=== PATIENT | female | born 1975 | race Caucasian/White ===

== ENCOUNTER 2017-08-07 18:00 | Emergency (ER) | payer OTHER ==
[~2017-08-07] VITALS: Ht 160 cm; Wt 81.7 kg
[~2017-08-07 18:00] MED LIST: ACYC400 PO; ACYC800 PO; ALBU90OI INH; ALPR.5 PO; AMOCLA500 PO; AMOX500 PO; BUPRENORPHINE HC8 MG SL; BUSP15 PO; CEPH500 PO; CLIN300 PO; CYCL10 PO; Cleocin HCl150 MG PO; DIAZ5 PO; DULO30 PO; DULO60 PO; Diflucan100 MG PO; Diflucan150 MG PO; HYDACE5 PO; IBUP800 PO; LISI20 PO; LISI5 PO; NAPR500 PO; Norco 5-325 Ta1 EACH PO; PENVK500 PO; PHENA100 PO; PRED20 PO; Percocet 5-3251 EACH PO; RXCLIN PO; RXCYCL10 PO; RXHYDACE PO; RXTRAM50 PO; TRAM50 PO; Valtrex1000 MG PO; Zovirax Cream 5%2 GM TOP; Zovirax200 MG PO; Zovirax400 MG PO; Zovirax800 MG PO
[2017-08-07] MEDS ORDERED: Voltaren100 GM TOP (18:12)
[2018-05-11] MEDS ORDERED: Zovirax800 MG PO (17:15)
== END 2017-08-07 18:17 | disposition home or self-care (01) ==
LOC: ER 18:00
DX: M54.5 Low back pain (principal); Z88.2 Allergy status to sulfonamides; Z79.899 Other long term (current) drug therapy; F32.9 Major depressive disorder, single episode, unspecified; G43.909 Migraine, unspecified, not intractable, without status migrainosus; Z90.10 Acquired absence of unspecified breast and nipple
CPT/HCPCS: 99282

== ENCOUNTER 2017-12-01 15:06 | Emergency (ER) | payer OTHER ==
[~2017-12-01] VITALS: Ht 157.5 cm; Wt 74.8 kg
[~2017-12-01 15:06] MED LIST changes: +Voltaren100 GM TOP
[2017-12-01] MEDS ORDERED: AMPDEX10CR PO (15:32)
[2017-12-01] MEDS ORDERED: SUBOXONE 8 MG-1 EACH PO (15:32)
[2017-12-01 15:49] LABS: Source, Urine Voided
[2017-12-01 15:57] LABS: Appearance, Urine Clear (Clear); Bilirubin, Urine Neg (Neg); Blood, Urine Neg (Neg); Color, Urine Yellow (P-Yellow); Glucose Qualitative, Urine Neg (Neg); Ketones, Urine Neg (Neg); Leukocyte Esterase, Urine 2+ (Neg); Nitrite, Urine Neg (Neg); Protein, Urine Neg (Neg); Urobilinogen, Urine NORM (Normal)
[2017-12-01 16:03] LABS: Bacteria Few /hpf; Mucus Light (0-Heavy); Red Blood Cells, Urine 0-2 /hpf (0-2); Squamous Epithelial Cells Few /hpf (Few)
[2017-12-03 17:08] LABS: CHLAMYDIA TRACHOMATIS, NAA Negative (Negative); NEISSERIA GONORRHOEAE, NAA Negative (Negative)
== END 2017-12-01 19:44 | disposition left against medical advice (07) ==
LOC: ER 15:06
PROVIDERS: Nurse Practitioner Family
DX: Z53.21 Procedure and treatment not carried out due to patient leaving prior to being seen by health care provider (principal)
CPT/HCPCS: 81001; 87086; 87491; 87591; 99283

== ENCOUNTER → 2018-01-28 | Outpatient (CLI) | payer OTHER ==
[~2018-01-28] MED LIST changes: +AMPDEX10CR PO; +SUBOXONE 8 MG-1 EACH PO
[2018-01-29 11:23] LABS: Candida species (DNA Probe) Negative (NEGATIVE); G. vaginalis (DNA Probe) Positive (NEGATIVE); T. vaginalis (DNA Probe) Positive (NEGATIVE)
== END ==
LOC: LAB SHORT 13:52 → LAB SRC 13:52
PROVIDERS: Registered Nurse
DX: Z12.4 Encounter for screening for malignant neoplasm of cervix (principal); N89.8 Other specified noninflammatory disorders of vagina
CPT/HCPCS: 87480; 87510; 87660

== ENCOUNTER 2018-05-09 00:35 | Emergency (ER) | payer OTHER ==
[~2018-05-09] VITALS: Ht 157.5 cm; Wt 112.5 kg
[2018-05-09] MEDS ORDERED: CLON.1 PO (00:57)
[2018-05-09] MEDS ORDERED: Ondansetron Odt8 MG PO (00:57)
[2018-05-11] MEDS ORDERED: Zovirax800 MG PO (17:15)
== END 2018-05-09 02:29 | disposition home or self-care (01) ==
LOC: ER 00:35
DX: F11.23 Opioid dependence with withdrawal (principal); F32.9 Major depressive disorder, single episode, unspecified; G43.909 Migraine, unspecified, not intractable, without status migrainosus; Z88.2 Allergy status to sulfonamides; Z79.899 Other long term (current) drug therapy
CPT/HCPCS: 96372; 99283; J1885; J2550; Q0163

== ENCOUNTER 2018-09-09 22:58 | Emergency (ER) | payer OTHER ==
[~2018-09-09] VITALS: Ht 157.5 cm; Wt 68.0 kg
[~2018-09-09 22:58] MED LIST changes: +CLON.1 PO; +Ondansetron Odt8 MG PO
[2018-09-10] MEDS ORDERED: Phenergan6.25 MG/5 PO (00:08)
[2018-09-10] MEDS ORDERED: BENZ100A PO (00:11)
[2018-09-10] MEDS ORDERED: Amphetamine Sal20 MG PO (00:14)
[2018-09-10] MEDS ORDERED: SUBOXONE 8 MG-1 EACH SL (00:14)
== END 2018-09-10 00:22 | disposition home or self-care (01) ==
LOC: ER 22:58
DX: J06.9 Acute upper respiratory infection, unspecified (principal); Z88.2 Allergy status to sulfonamides; Z79.899 Other long term (current) drug therapy; F32.9 Major depressive disorder, single episode, unspecified; G43.909 Migraine, unspecified, not intractable, without status migrainosus
CPT/HCPCS: 87081; 87430; 99283

== ENCOUNTER → 2019-10-07 | Outpatient (CLI) | payer OTHER ==
[~2019-10-07] MED LIST changes: +Amphetamine Sal20 MG PO; +BENZ100A PO; +IBUP200 PO; +Phenergan6.25 MG/5 PO; +SUBOXONE 8 MG-1 EACH SL
[2019-10-08 09:52] LABS: Candida species (DNA Probe) Negative (NEGATIVE); G. vaginalis (DNA Probe) Negative (NEGATIVE); T. vaginalis (DNA Probe) Negative (NEGATIVE)
[2019-10-09 15:09] LABS: HPV 16 Negative (Negative); HPV 18 Negative (Negative); HPV OTHER HR TYPES Negative (Negative)
== END | disposition home or self-care (01) ==
LOC: LAB SHORT 17:49 → LAB 17:49
PROVIDERS: Registered Nurse
DX: Z12.4 Encounter for screening for malignant neoplasm of cervix (principal); Z72.51 High risk heterosexual behavior
CPT/HCPCS: 87480; 87510; 87624; 87660; G0123

== ENCOUNTER → 2022-07-31 | Outpatient (CLI) | payer OTHER ==
[2022-07-31 16:50] LABS: Source, Urine Voided
[2022-07-31 17:41] LABS: Appearance, Urine Hazy (Clear); Bilirubin, Urine Neg (Neg); Blood, Urine 1+ (Neg); Color, Urine Yellow (P-Yellow); Glucose Qualitative, Urine Neg (Neg); Ketones, Urine Neg (Neg); Leukocyte Esterase, Urine 2+ (Neg); Nitrite, Urine Neg (Neg); Protein, Urine 1+ (Neg); Specific Gravity, Urine 1.015 (1.003-1.022); Urobilinogen, Urine NORM (Normal)
[2022-07-31 17:52] LABS: White Blood Cells, Urine 50-100 /hpf (0-5); Yeast/Fungi Urine Few /hpf
[2022-07-31 17:53] LABS: Bacteria Mod /hpf; Red Blood Cells, Urine 0-2 /hpf (0-2); Squamous Epithelial Cells Few /hpf (Few)
== END | disposition home or self-care (01) ==
LOC: LAB 15:00 → LAB SHORT 15:00
PROVIDERS: Registered Nurse
DX: R35.0 Frequency of micturition (principal); R30.0 Dysuria; R39.15 Urgency of urination
CPT/HCPCS: 81001; 87086

== ENCOUNTER → 2022-10-22 | Outpatient (CLI) | payer OTHER ==
[2022-10-26 07:21] LABS: Stool Occult Bld Immuno 1 Negative (NEGATIVE)
== END | disposition home or self-care (01) ==
LOC: LAB 12:00 → LAB SHORT 12:00
PROVIDERS: Registered Nurse
DX: Z12.11 Encounter for screening for malignant neoplasm of colon (principal)
CPT/HCPCS: G0328

== ENCOUNTER 2023-08-08 10:32 | Emergency (ER) | payer BC ==
[~2023-08-08] VITALS: Ht 157.5 cm; Wt 59.0 kg
[2023-08-08 11:07] VITALS: BP 158/91
[2023-08-08 11:33] LABS: Source, Urine Clean Catch
[2023-08-08 11:37] LABS: Appearance, Urine Hazy (Clear); Bilirubin, Urine Neg (Neg); Blood, Urine 5+ (Neg); Color, Urine Yellow (P-Yellow); Glucose Qualitative, Urine Neg (Neg); Ketones, Urine Neg (Neg); Leukocyte Esterase, Urine 3+ (Neg); Nitrite, Urine Neg (Neg); Protein, Urine 1+ (Neg); Urobilinogen, Urine NORM (Normal); pH, Urine 6.5 (5.0-8.0)
[2023-08-08 12:41] LABS: Bacteria Mod /hpf; Squamous Epithelial Cells Few /hpf (Few); White Blood Cells, Urine 50-100 /hpf (0-5)
[2023-08-08 12:42] LABS: Yeast/Fungi Urine Rare /hpf
[2023-08-08] MEDS ORDERED: Macrobid 100 M100 MG PO (12:48)
[2023-08-08] MEDS ORDERED: Pyridium200 MG PO (12:50)
== END 2023-08-08 13:02 | disposition home or self-care (01) ==
LOC: ER 10:32
PROVIDERS: Physician Assistant
DX: N39.0 Urinary tract infection, site not specified (principal); G43.909 Migraine, unspecified, not intractable, without status migrainosus; Z79.899 Other long term (current) drug therapy; Z88.2 Allergy status to sulfonamides
CPT/HCPCS: 81001; 87086; 99283; A9270

== ENCOUNTER 2023-08-16 09:59 | Emergency (ER) | payer BC ==
[~2023-08-16] VITALS: Ht 157.5 cm; Wt 61.2 kg
[~2023-08-16 09:59] MED LIST changes: +Macrobid 100 M100 MG PO; +Pyridium200 MG PO
[2023-08-16 10:17] VITALS: BP 169/90
[2023-08-16 10:42] LABS: BASOPHILS ABSOLUTE AUTO 0.02 K/mm3 (0.00-0.23); BASOPHILS PERCENT AUTO 0 % (0-2); EOSINOPHILS PERCENT AUTO 1 % (0-6); Hematocrit 41.7 % (33.0-51.0); Hemoglobin 14.1 g/dL (11.5-16.0); IMMATURE GRAN ABSOLUTE AUTO 0.01 K/mm3 (0.00-0.10); IMMATURE GRAN PERCENT AUTO 0 % (0-1); LYMPHOCYTES ABSOLUTE AUTO 1.91 K/mm3 (0.84-5.20); LYMPHOCYTES PERCENT AUTO 21 % (21-46); MONOCYTES ABSOLUTE AUTO 0.51 K/mm3 (0.16-1.47); MONOCYTES PERCENT AUTO 6 % (4-13); Mean Corpuscular HGB 30.6 pg (26.0-34.0); Mean Corpuscular HGB Conc 33.8 g/dL (31.5-36.5); Mean Corpuscular Volume 91 fL (80-100); Mean Platelet Volume 9.3 fL (9.1-12.4); NEUTROPHILS ABSOLUTE AUTO 6.39 K/mm3 (1.96-9.15); NEUTROPHILS PERCENT AUTO 72 % (41-73); Platelet Count 315 K/mm3 (150-400); RDW Coefficient Variation 12.2 % (11.7-14.2); RDW Standard Deviation 40.2 fL (35.1-46.3); Red Blood Cell Count 4.61 M/mm3 (3.80-5.20); White Blood Cell Count 8.94 K/mm3 (4.00-11.30)
[2023-08-16 11:02] LABS: Albumin, Blood 4.4 g/dL (3.4-5.0); Albumin/Globulin Ratio 1.1 (0.8-1.8); Bilirubin, Total 0.9 mg/dL (0.1-1.0); Calcium, Blood 9.6 mg/dL (8.5-10.1); Creatinine, Blood 0.52 mg/dL (0.40-1.00); Globulin, Blood 3.9 g/dL (2.2-4.0); Potassium, Blood 4.1 mmol/L (3.5-5.5); Total Protein, Blood 8.3 g/dL (6.4-8.2)
[2023-08-16 11:17] LABS: Source, Urine Clean Catch
[2023-08-16 11:33] LABS: Appearance, Urine Hazy (Clear); Bilirubin, Urine Neg (Neg); Blood, Urine 1+ (Neg); Color, Urine Yellow (P-Yellow); Glucose Qualitative, Urine Neg (Neg); Ketones, Urine 3+ (Neg); Leukocyte Esterase, Urine Neg (Neg); Nitrite, Urine Neg (Neg); Protein, Urine 1+ (Neg); Urobilinogen, Urine NORM (Normal)
[2023-08-16 11:52] LABS: Bacteria Few /hpf; Mucus Mod (0-Heavy); Red Blood Cells, Urine 0-2 /hpf (0-2); Squamous Epithelial Cells Mod /hpf (Few); White Blood Cells, Urine 0-2 /hpf (0-5)
[2023-08-16 11:53] LABS: Yeast/Fungi Urine Mod /hpf
[2023-08-16] MEDS ORDERED: ONDA4ODT MM (12:11)
== END 2023-08-16 12:04 | disposition home or self-care (01) ==
LOC: ER 09:59
PROVIDERS: Student in an Organized Health Care Education/Training Program
DX: K52.9 Noninfective gastroenteritis and colitis, unspecified (principal); I10 Essential (primary) hypertension; G43.909 Migraine, unspecified, not intractable, without status migrainosus; Z79.899 Other long term (current) drug therapy; Z88.2 Allergy status to sulfonamides
CPT/HCPCS: 80053; 81001; 83690; 85025; 87086; 96361; 96374; 96375; 99284-25; J1885; J2405; J7030